=== PATIENT | male | born 1985 | race Caucasian/White ===

== ENCOUNTER 2019-06-16 19:51 | Emergency (ER) | payer SELFPAY ==
[2019-06-16 19:58] VITALS: BP 156/100; PULSE 86; TEMP 98.3; BMI 24.9
--- NOTE | 2019-06-16 21:23 | PDOC ---
History of Present Illness - General Chief Complaint: Pain, Acute Stated Complaint: SHOULDER INJURY Time Seen by Provider: 06/16/19 21:02 - History of Present Illness Initial Comments: 06/16/19 21:21 34-year-old male without comorbidities presents for evaluation of left shoulder pain. While vacationing in [place] last week he slipped fell on the left shoulder went to the hospital and was diagnosed with an AC separation. He brings films in today from the hospital in [place]. Past History - Past Medical History Allergies/Adverse Reactions: Allergies Allergy/AdvReac Type Severity Reaction Status Date / Time No Known Allergies Allergy Verified 06/16/19 19:58 Home Medications: Ambulatory Orders NK [No Known Home Medication] 01/15/16 Asthma: Yes - Psycho Social/Smoking Cessation Hx Smoking History: Never smoked Hx Alcohol Use: No Drug/Substance Use Hx: No Substance Use Type: None Review of Systems - Review of Systems Musculoskeletal: Yes: Joint Pain *Physical Exam - Vital Signs Last Vital Signs Temp Pulse Resp BP Pulse Ox 98.3 F 86 18 156/100 98 06/16/19 19:53 06/16/19 19:53 06/16/19 19:53 06/16/19 19:53 06/16/19 19:53 - Physical Exam 06/16/19 21:21 Left shoulder skin color and temperature normal range of motion is limited tenderness over the AC joint with a palpable deformity and positive piano person sign no gross sensorimotor deficits bilateral upper extremity compartments are soft and nontender neurovascular intact Medical Decision Making - Medical Decision Making 06/16/19 21:22 Left shoulder x-rays from [place] show an AC separation probably a grade 1-1/2-2 Discharge - Discharge Information Problems reviewed: Yes Clinical Impression/Diagnosis: AC separation, type 2 Condition: Stable Disposition: HOME - Admission No - Follow up/Referral Referrals: Oliver Sanchez MD [Primary Care Provider] - Juan Romero DO [Staff Physician] - - Patient Discharge Instructions Additional Instructions: Continue with the sling for comfort as directed and come out of the sling multiple times a day as discussed to exercise and use range of motion exercises on your elbow. Tylenol and Motrin as directed for pain and return to the emergency room should symptoms worsen. Without fail follow-up with orthopedic surgery in 2 to 3 days for further evaluation and treatment options. - Post Discharge Activity
== END 2019-06-16 21:32 | disposition home or self-care (01) ==
LOC: JERFT 19:51
DX: S43.102A Unspecified dislocation of left acromioclavicular joint, initial encounter (principal); W01.0XXA Fall on same level from slipping, tripping and stumbling without subsequent striking against object, initial encounter; Y93.89 Activity, other specified; Y92.89 Other specified places as the place of occurrence of the external cause; Y99.8 Other external cause status; J45.909 Unspecified asthma, uncomplicated
CPT/HCPCS: 99281-25

== ENCOUNTER 2022-03-08 19:25 | Emergency (ER) | payer SELFPAY ==
[2022-03-08 19:30] VITALS: BMI 26.3
[2022-03-08] MEDS ORDERED: LACTATED RINGERS SOLUTION 1000 ML INFUS.BAG IV ONE (20:31)
[2022-03-08 21:34] LABS: VENOUS BASE EXCESS 2.7 mmol/L (-2-2); VENOUS O2 SATURATION 38.1 % (70-80); VENOUS PH 7.391 (7.310-7.410)
[2022-03-08 21:36] LABS: HEMATOCRIT 40.9 % (35.4-49); HEMOGLOBIN 13.9 GM/dL (11.7-16.9); MEAN CELL VOLUME 85.1 fl (80-96); MEAN PLT VOLUME 6.9 fl (7.5-11.1); PLATELET COUNT 321 10^3/uL (134-434); RBC 4.81 M/mm3 (4.00-5.60); RDW 13.3 % (11.9-15.9); WHITE BLOOD COUNT 8.9 K/mm3 (4.0-10.0)
[2022-03-08 21:37] LABS: URINE APPEARANCE CLEAR; URINE BILIRUBIN NEGATIVE (NEGATIVE); URINE COLOR YELLOW; URINE GLUCOSE (UA) NEGATIVE (NEGATIVE); URINE KETONE NEGATIVE (NEGATIVE); URINE LEUK ESTERASE NEGATIVE (NEGATIVE); URINE NITRITE NEGATIVE (NEGATIVE); URINE PROTEIN NEGATIVE (NEGATIVE); URINE UROBILINOGEN 0.2 mg/dL (0.2-1.0)
[2022-03-08 21:44] LABS: INR 1.17 (0.83-1.09); PROTHROMBIN TIME (PATIENT) 13.5 SEC (9.7-13.0)
[2022-03-08 21:46] LABS: ACTIVATED PTT 35.1 SECONDS (25.2-36.5)
[2022-03-08 22:08] LABS: CALCIUM 8.9 mg/dL (8.5-10.1)
[2022-03-08 22:10] LABS: ALBUMIN 3.7 g/dl (3.4-5.0); BLOOD UREA NITROGEN 8.1 mg/dL (7-18); MAGNESIUM 2.3 mg/dL (1.8-2.4)
[2022-03-08 22:15] LABS: ANISOCYTOSIS 0; MACROCYTOSIS 0
[2022-03-08 22:15] LABS: BILIRUBIN,TOTAL 0.3 mg/dL (0.2-1); TOT PROT 7.4 g/dl (6.4-8.2)
[2022-03-09 00:57] VITALS: BP 124/83; PULSE 98; RESP 20; TEMP 97.9
== END 2022-03-09 01:30 | disposition home or self-care (01) ==
LOC: JER 19:25
DX: R50.9 Fever, unspecified (principal)
CPT/HCPCS: 0241U-QW; 36415; 70450-TC; 71045-TC-FY; 71275-TC; 76705-TC; 80053; 81003; 82550; 82553; 82803; 83605; 83735; 84443; 84484; 85025; 85379; 85610; 85730; 87040; 87086; 93005; 93010; 99285-25; Q9967